=== PATIENT | female | born 1945 | race Caucasian/White ===

== ENCOUNTER 2018-05-28 06:19 | Day surgery (SDC) | payer MEDICARE, BC ==
[2018-05-28] MEDS ORDERED: Lactated Ringers 1,000 ML IV SCH ×2 (07:07→08:30)
[2018-05-28] MEDS ORDERED: Midazolam 1 MG/ML 2 ML SDV ONE (07:14)
[2018-05-28] MEDS ORDERED: Propofol 200 MG/20 ML SDV ONE (07:14)
[2018-05-28] MEDS ORDERED: fentaNYL 100 MCG/2 ML SDV ONE (07:14)
--- NOTE | 2018-05-28 10:59 | OR ---
DATE OF PROCEDURE: 05/28/2018 PREOPERATIVE DIAGNOSES: 1. Change in bowel habits, manifested by alternating constipation and diarrhea. 2. Abnormal CT scan showing thickened sigmoid colon with diverticulosis. POSTOPERATIVE DIAGNOSES: 1. Change in bowel habits, manifested by alternating constipation and diarrhea. 2. Abnormal CT scan showing thickened sigmoid colon with diverticulosis. PROCEDURE: Colonoscopy to the cecum with random colon biopsies. ANESTHESIA: IV anesthesia with monitored anesthesia care. INDICATION: This 73-year-old white female is referred for a colonoscopy. Her last colonoscopic exam, she says, was 12 years ago. She complains of some abdominal pain. CAT scan shows a thickened sigmoid with no obvious acute diverticulitis, but multiple diverticula. I counseled her for the colonoscopy with possible biopsy including risks and alternatives, and she gave her informed consent to proceed. DESCRIPTION OF PROCEDURE: The patient was placed in the left lateral decubitus position. IV anesthesia was administered by the Anesthesia service. Time-out was held. A rectal exam was performed, which was unremarkable. The flexible video Olympus colonoscope was introduced through her anus, up her rectum and out her colon, all the way to the cecum. En route, we saw multiple left-sided diverticula. There was no bleeding or inflammation associated with them at the present time. Once the cecum was reached, the scope was slowly withdrawn, examining the mucosa throughout. No additional mucosal abnormalities were noted. We did obtain random colonic biopsies throughout the entire colon. In the rectum, the scope was retroflexed, with the distal rectum appearing unremarkable. The scope was straightened and removed. She tolerated the procedure well. Basilio David MD /[id number]
== END 2018-05-28 10:13 | disposition home or self-care (01) ==
LOC: JP.SDS 06:19
PROVIDERS: ATTEND Surgery
DX: R19.4 Change in bowel habit (principal); K52.9 Noninfective gastroenteritis and colitis, unspecified; K57.30 Diverticulosis of large intestine without perforation or abscess without bleeding; K63.89 Other specified diseases of intestine; E03.9 Hypothyroidism, unspecified; E78.00 Pure hypercholesterolemia, unspecified; Z88.1 Allergy status to other antibiotic agents; Z88.5 Allergy status to narcotic agent; Z88.6 Allergy status to analgesic agent
CPT/HCPCS: 45380; 88305; J2250; J2704; J3010; J7120

== ENCOUNTER 2020-05-04 12:45 | Emergency (ER) | payer MEDICARE, BC ==
[2020-05-04] MEDS ORDERED: Sodium Chloride 0.9% 1,000 ML IV ONE (13:26)
[2020-05-04] MEDS ORDERED: HYDROmorphone 0.5 MG/0.5 ML Syringe IVPUSH ONE (13:26)
[2020-05-04] MEDS ORDERED: Ondansetron 4 MG/2 ML SDV IVPUSH ONE (13:26)
[2020-05-04] MEDS ORDERED: Sodium Chloride 0.9% 10 ML Syringe FLUSH PRN (13:27)
--- NOTE | 2020-05-04 13:35 | EDM.PDOC ---
ED HPI GENERAL MEDICAL PROBLEM - General Chief Complaint: Abdominal Pain Stated Complaint: ABD PAIN Time Seen by Provider: 05/04/20 13:25 Source of Information: Reports: Patient History Limitations: Reports: No Limitations - History of Present Illness INITIAL COMMENTS - FREE TEXT/NARRATIVE: Izzy is a 75 year old female, hx of diverticulitis, presents to the ED today with c/o abdominal pain, nausea and diarrhea. Patient was seen by GI last Monday for lower abdominal pain, she was concerned she had diverticulitis again, patient reports that the GI doctor did not think this was the case and thought patient had irritable bowel syndrome. Patient reports that it as recommended she start taking Miralax once in the morning and at night which she did not do as she has not issues with constipation. Patient was given a RX for cipro/flagyl on instructed to start taking these last Monday if her symptoms persisted, patient did start these on Monday morning. Since then patient's pain has migrated and now is more severe in RUQ and mid epigastric region, grabbing in sensation, nothing makes better or worse including her anti-spasmodics at home. Patient endorses nausea and now since this morning has had several, 6-7 episodes of non blood diarrhea. Patient still has lower abdominal pain. Patient denies any fever/chills. Patient has had a cholecystectomy and appen dectomy in the past as well as total hysterectomy. Patient denies any hx of C- diff, she does report hx of viral hepatitis. Patient denies any recent travel or sick exposures. Onset: Gradual Duration: Day(s): (6) Right Upper Abdomen Pain Score (Numeric/FACES): 10 - Related Data Allergies Allergy/AdvReac Type Severity Reaction Status Date / Time codeine Allergy Severe Anaphylactic Verified 07/29/18 07:33 Shock cephalexin monohydrate Allergy Rash Verified 08/07/14 08:08 [From Keflex] meperidine HCl [From Demerol] Allergy Rash Verified 08/07/14 08:08 tetracycline [Tetracycline] Allergy Rash Verified 08/07/14 08:08 Home Meds: Home Meds Levothyroxine [Synthroid] 50 mcg PO DAILY 08/06/14 [History] Cholecalciferol (Vitamin D3) [Vitamin D3] 2,000 units PO DAILY 05/24/18 [History] Magnesium Citrate 125 mg PO BID 05/24/18 [History] estradioL [Estradiol] 1 mg PO DAILY 05/24/18 [History] Ciprofloxacin [Ciprofloxacin HCl] 500 mg PO BID 05/04/20 [History] metroNIDAZOLE [Flagyl] 500 mg PO BID 05/04/20 [History] Past Medical History HEENT History: Reports: Impaired Vision Other HEENT History: wears glasses Gastrointestinal History: Reports: Chronic Diarrhea, Diverticulosis Genitourinary History: Reports: None Endocrine/Metabolic History: Reports: Hypothyroidism Hematologic History: Reports: B12 Deficiency - Infectious Disease History Infectious Disease History: Reports: Chicken Pox - Past Surgical History HEENT Surgical History: Reports: Cataract Surgery, Tonsillectomy GI Surgical History: Reports: Appendectomy, Cholecystectomy, Colonoscopy Female Surgical History: Reports: Breast Biopsy, Hysterectomy, Salpingo- Oophorectomy, Other (See Below) Other Female Surgeries/Procedures: lumpectomy 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 Dermatological Surgical History: Reports: None Social & Family History - Family History Cardiac: Reports: Heart Failure GI: Reports: Other (See Below) Other GI Family History: colitis : Reports: Renal Disease/Insufficiency Musculoskeletal: Reports: Back pain, Chronic Neurological: Reports: Other (See Below) Other Neurological Family History: non-cancerous brain tumor Endocrine/Metabolic: Reports: Diabetes, Type I, Diabetes, type II Oncologic: Reports: Breast, Lung, Skin, Thyroid - Tobacco Use Smoking Status *Q: Never Smoker - Caffeine Use Caffeine Use: Reports: Coffee ED ROS GENERAL - Review of Systems Review Of Systems: Comprehensive ROS is negative, except as noted in HPI. ED EXAM, GI/ABD - Physical Exam Exam: See Below Exam Limited By: No Limitations General Appearance: Alert, WD/WN, No Apparent Distress Eyes: Bilateral: EOMI Ears: Normal External Exam Throat/Mouth: Normal Inspection Head: Atraumatic Neck: Normal Inspection, Supple Respiratory/Chest: No Respiratory Distress, Lungs Clear Cardiovascular: Regular Rate, Rhythm, No Murmur GI/Abdominal Exam: Normal Bowel Sounds, Distended, Tender (exquisit tenderness to RUQ, gaurding, to a lesser degree lower abdomen, LLQ > RLQ. no hernia) Rectal (Female) Exam: Deferred Back Exam: Normal Inspection Extremities: Normal Inspection Neurological: Alert, Oriented, CN II-XII Intact Psychiatric: Normal Affect, Anxious (appears uncomfortable) Lymphatic: No Adenopathy Course - Vital Signs Last Recorded V/S: Last Vital Signs Temp 35.9 C L 05/04/20 13:07 Pulse 75 05/04/20 14:25 Resp 13 05/04/20 13:07 BP 140/55 L 05/04/20 14:25 Pulse Ox 97 05/04/20 14:25 Izzy is a very pleasant 75 year old female who presents to the ED today with nausea, diarrhea, and progressive abdominal pain. Please refer to HPI and focused exam. Patient arrives here hemodynamically stable and afebrile. She has exquisite tenderness on exam to RUQ region. Patient may have had diverticulitis, I am concerned about abscess formation vs. bowel perforation. She has had a cholecystectomy, however, a common bile duct stone may be playing a role. PIV established, blood work, UA and stool cultures including C-diff ordered. Patient given IV fluids and pain/nausea medications. CT of abdomen/pelvis obtained. CBC returns with normal white count, CRP just barely elevated at 0.34 with slight Gap of 14.9. GFR is 54 with normal Creatinine. AST mildly elevated at 79, bilirubin, remaining LFT's and Lipase/Amylase WNL. CT scan shows some ? focal diverticulitis, may have been worse prior to taking of Flagyl/Cipro. Patient does have some intrahepatic biliary prominence on CT scan. Since this is where majority of her pain is I did obtain a RUQ US to rule out choledocholithiasis. RUQ US unremarkable for any acute findings. Pain is better here with IV fluids and Dilaudid. After further discussion with patient, she has not been taking her probiotic since she started the Cipro/Flagyl which combined with just being on an antibiotic is likely attributing to her diarrhea. She can resume her probiotic at home or I did recommend Culturelle. With regard to epigastric pain, patient does have a small hiatal hernia, I am going to start her on BID Prilosec and discharge her home with Zofran. She should complete her Cipro/Flagyl course given her CT findings here today. Stool sample if diarrhea continues, out patient order placed. Patient instructed to stay well hydrated. Follow up with PCP in 1-2 weeks for re-check. Reasons to return to the ED discussed, patient and her are agreeable to plan of care and patient discharged in stable condition. - Orders/Labs/Meds Orders: Active Orders 24 hr Category Date Time Status Peripheral IV Care [RC] . DIRECTED Care 05/04/20 13:27 Active CULTURE STOOL + SHIGATOX [] Stat Lab 05/04/20 13:29 Ordered Clostridium [CLOS DIFFICILE PCR W/REFLEX] [] Stat Lab 05/04/20 13:28 Ordered Iopamidol [Isovue-300 (61%)] Med 05/04/20 13:45 Active 100 ml IV . DIRECTED Sodium Chloride 0.9% [Saline Flush] Med 05/04/20 13:27 Active 10 ml FLUSH ASDIRECTED PRN Peripheral IV Insertion Adult [OM.PC] Routine Oth 05/04/20 13:27 Ordered Medication Orders Iopamidol (Isovue-300 (61%)) 100 ml IV . DIRECTED [facility] Last Admin: 05/04/20 13:49 Dose: 100 ml Documented by: BANDAR Sodium Chloride (Saline Flush) 10 ml FLUSH ASDIRECTED PRN PRN Reason: Keep Vein Open Last Admin: 05/04/20 13:38 Dose: 10 ml Documented by: TRENTON Labs: Laboratory Tests 05/04/20 05/04/20 05/04/20 Range/Units 13:30 13:30 13:30 WBC 7.8 (4.5-11.0) K/uL RBC 4.63 (3.30-5.50) M/uL Hgb 14.0 (12.0-15.0) g/dL Hct 43.1 (36.0-48.0) % MCV 93 (80-98) fL MCH 30 (27-31) pg MCHC 33 (32-36) % Plt Count 250 (150-400) K/uL Neut % (Auto) 72 H (36-66) % Lymph % (Auto) 19 L (24-44) % Sunflower % (Auto) 7 H (2-6) % Eos % (Auto) 2 (2-4) % Baso % (Auto) 0 (0-1) % Sodium 139 L (140-148) mmol/L Potassium 3.9 (3.6-5.2) mmol/L Chloride 103 (100-108) mmol/L Carbon Dioxide 25 (21-32) mmol/L Anion Gap 14.9 H (5.0-14.0) mmol/L BUN 8 (7-18) mg/dL Creatinine 1.0 (0.6-1.0) mg/dL Est Cr Clr Drug Dosing 40.83 mL/min Estimated GFR (MDRD) 54 L (>60) Glucose 94 (74-106) mg/dL Lactic Acid 0.8 (0.4-2.0) mmol/L Calcium 9.0 (8.5-10.1) mg/dL Total Bilirubin 0.6 (0.2-1.0) mg/dL AST 79 H (15-37) U/L ALT 34 (12-78) U/L Alkaline Phosphatase 72 (46-116) U/L C-Reactive Protein 0.34 H (0.0-0.3) mg/dL Total Protein 7.0 (6.4-8.2) g/dL Albumin 3.7 (3.4-5.0) g/dL Globulin 3.3 (2.3-3.5) g/dL Albumin/Globulin Ratio 1.1 L (1.2-2.2) Amylase 51 (25-115) U/L Lipase 116 (73-393) U/L Urine Color (YELLOW) Urine Appearance (CLEAR) Urine pH (5.0-8.0) Ur Specific [place] (1.008-1.030) Urine Protein (NEGATIVE) mg/dL Urine Glucose (UA) (NEGATIVE) mg/dL Urine Ketones (NEGATIVE) mg/dL Urine Occult Blood (NEGATIVE) Urine Nitrite (NEGATIVE) Urine Bilirubin (NEGATIVE) Urine Urobilinogen (0.2-1.0) EU/dL Ur Leukocyte Esterase (NEGATIVE) Urine RBC (0-5) Urine WBC (0-5) Ur Epithelial Cells Amorphous Sediment Urine Bacteria Urine Mucus 05/04/20 Range/Units 14:08 WBC (4.5-11.0) K/uL RBC (3.30-5.50) M/uL Hgb (12.0-15.0) g/dL Hct (36.0-48.0) % MCV (80-98) fL MCH (27-31) pg MCHC (32-36) % Plt Count (150-400) K/uL Neut % (Auto) (36-66) % Lymph % (Auto) (24-44) % Sunflower % (Auto) (2-6) % Eos % (Auto) (2-4) % Baso % (Auto) (0-1) % Sodium (140-148) mmol/L Potassium (3.6-5.2) mmol/L Chloride (100-108) mmol/L Carbon Dioxide (21-32) mmol/L Anion Gap (5.0-14.0) mmol/L BUN (7-18) mg/dL Creatinine (0.6-1.0) mg/dL Est Cr Clr Drug Dosing mL/min Estimated GFR (MDRD) (>60) Glucose (74-106) mg/dL Lactic Acid (0.4-2.0) mmol/L Calcium (8.5-10.1) mg/dL Total Bilirubin (0.2-1.0) mg/dL AST (15-37) U/L ALT (12-78) U/L Alkaline Phosphatase (46-116) U/L C-Reactive Protein (0.0-0.3) mg/dL Total Protein (6.4-8.2) g/dL Albumin (3.4-5.0) g/dL Globulin (2.3-3.5) g/dL Albumin/Globulin Ratio (1.2-2.2) Amylase (25-115) U/L Lipase (73-393) U/L Urine Color Yellow (YELLOW) Urine Appearance Clear (CLEAR) Urine pH 5.5 (5.0-8.0) Ur Specific [place] <= 1.005 L (1.008-1.030) Urine Protein Negative (NEGATIVE) mg/dL Urine Glucose (UA) Negative (NEGATIVE) mg/dL Urine Ketones Negative (NEGATIVE) mg/dL Urine Occult Blood Negative (NEGATIVE) Urine Nitrite Negative (NEGATIVE) Urine Bilirubin Negative (NEGATIVE) Urine Urobilinogen 0.2 (0.2-1.0) EU/dL Ur Leukocyte Esterase Negative (NEGATIVE) Urine RBC Not seen (0-5) Urine WBC 0-5 (0-5) Ur Epithelial Cells Not seen Amorphous Sediment Not seen Urine Bacteria Few Urine Mucus Not seen Meds: Medications Generic Name Dose Route Start Last Admin Trade Name Freq PRN Reason Stop Dose Admin Iopamidol 100 ml 05/04/20 13:45 05/04/20 13:49 Isovue-300 (61%) IV 100 ml . DIRECTED ERIK Administration Sodium Chloride 10 ml 05/04/20 13:27 05/04/20 13:38 Saline Flush FLUSH 10 ml ASDIRECTED PRN Administration Keep Vein Open Discontinued Medications Generic Name Dose Route Start Last Admin Trade Name Lucq PRN Reason Stop Dose Admin Hydromorphone HCl 0.5 mg 05/04/20 13:26 05/04/20 13:38 Dilaudid IVPUSH 05/04/20 13:27 0.5 mg ONETIME ONE Administration Sodium Chloride 1,000 mls @ 999 mls/hr 05/04/20 13:26 05/04/20 13:37 Normal Saline IV 05/04/20 14:26 999 mls/hr .BOLUS ONE Administration Ondansetron HCl 4 mg 05/04/20 13:05/04/20 13:38 Zofran IVPUSH 05/04/20 13:27 4 mg ONETIME ONE Administration Sodium Chloride 10 ml 05/04/20 13:38 05/04/20 13:49 Saline Flush FLUSH 05/04/20 13:39 10 ml ONETIME ONE Administration Departure - Departure Time of Disposition: 16:00 Disposition: Home, Self-Care 01 Condition: Good Clinical Impression: Diverticulitis Abdominal pain Qualifiers: Abdominal location: right upper quadrant Qualified Code(s): R10.11 - Right upper quadrant pain Diarrhea Qualifiers: Diarrhea type: unspecified type Qualified Code(s): R19.7 - Diarrhea, unspecified - Discharge Information Instructions: Diverticulitis, Abdominal Pain, Adult, [id number], Diarrhea, Adult Referrals: Vahid Shaffer MD [Primary Care Provider] - Forms: ED Department Discharge Additional Instructions: Complete the Cipro/Flagyl course, take with food. Stay well hydrated. Prilosec twice daily for 2 weeks, start this evening, take one hour prior to antibiotic dose. Resume your daily probiotic. Bring in stool sample if you continue to have multiple daily loose stools. Return here with any worsening symptoms or new concerns, follow up with your primary care provider in 1-2 weeks for recheck. It was nice meeting you, I hope you feel better soon! Sepsis Event Note (ED) - Evaluation Sepsis Screening Result: No Definite Risk - Focused Exam Vital Signs: Vital Signs Temp Pulse Resp BP Pulse Ox 05/04/20 14:25 75 140/55 L 97 05/04/20 13:07 35.9 C L 86 13 155/70 H 97 05/04/20 13:05 35.9 C L 86 13 155/70 H 97 - My Orders Last 24 Hours: My Active Orders 05/04/20 13:27 Peripheral IV Care [RC] . DIRECTED Sodium Chloride 0.9% [Saline Flush] 10 ml FLUSH ASDIRECTED PRN Peripheral IV Insertion Adult [OM.PC] Routine 05/04/20 13:28 Clostridium [CLOS DIFFICILE PCR W/REFLEX] [RM] Stat 05/04/20 13:29 CULTURE STOOL + SHIGATOX [RM] Stat 05/04/20 13:45 Iopamidol [Isovue-300 (61%)] 100 ml IV . DIRECTED - Assessment/Plan Last 24 Hours: My Active Orders 05/04/20 13:27 Peripheral IV Care [RC] . DIRECTED Sodium Chloride 0.9% [Saline Flush] 10 ml FLUSH ASDIRECTED PRN Peripheral IV Insertion Adult [OM.PC] Routine 05/04/20 13:28 Clostridium [CLOS DIFFICILE PCR W/REFLEX] [RM] Stat 05/04/20 13:29 CULTURE STOOL + SHIGATOX [RM] Stat 05/04/20 13:45 Iopamidol [Isovue-300 (61%)] 100 ml IV . DIRECTED
[2020-05-04] MEDS ORDERED: Sodium Chloride 0.9% 10 ML Syringe FLUSH ONE (13:38)
[2020-05-04] MEDS ORDERED: Iopamidol 612 MG/ML 100 ML Bottle IV SCH (13:45)
--- NOTE | 2020-05-04 14:08 | CT ---
Abdomen Pelvis w Cont CLINICAL HISTORY: Right abdominal pain COMPARISON: 2019. TECHNIQUE: Axial tomographic images are obtained from the dome of the diaphragm to the pubic symphysis without IV contrast enhancement. No oral contrast was used. Auto dosage reduction and iterative reconstruction techniques employed. FINDINGS: The lung bases are clear. The liver shows no mass. There is some intrahepatic biliary prominence. This may be related to previous cholecystectomy. This is likely related to previous cholecystectomy but appears slightly more prominent than on prior studies. The spleen has a normal size and shape. There is a small sliding-type hiatal hernia The pancreas shows no mass or inflammatory change. The adrenal glands appear normal bilaterally. The kidneys show no mass, stones or hydronephrosis. Ureters have normal course and caliber. The bladder has a normal contour. The aorta has a normal contour. There is no suspicious retroperitoneal adenopathy. There is moderate diffuse diverticulosis is some mild the thickening of the distal descending colon with some mild ill-definition of the surrounding fat. This is just above the area of a previously described diverticulitis. The appendix is not visualized. IMPRESSION: Moderate diverticulosis with a focus of thickening and some pericolic inflammation. This is just above the site of previous diverticulitis. This may represent some scarring and muscularis hypertrophy. Some focal diverticulitis is not excluded. Previous cholecystectomy. There is some intrahepatic biliary dilatation which may be related but this appears slightly more prominent than on prior study. This may be normal progression of postoperative change. This should be correlated with laboratory values
--- NOTE | 2020-05-04 15:19 | US ---
Abdomen Ltd CLINICAL HISTORY: Right upper quadrant pain, previous cholecystectomy COMPARISON: Current CT. TECHNIQUE: Real-time images were obtained through the right upper quadrant. FINDINGS: The liver is free of mass.There is some intrahepatic biliary dilatation. Liver parenchyma has a normal echotexture. The gallbladder has been removed. The common bile duct measures 12 mm. The pancreas is free of mass. The right kidney has a normal appearance. The IVC is normal. No free fluid seen IMPRESSION: Mildly trabeculated biliary dilatation as seen on current CT Previous cholecystectomy Common bile duct measures 12 mm No free fluid
== END 2020-05-04 16:00 | disposition home or self-care (01) ==
LOC: JP.ED 12:45
DX: K57.32 Diverticulitis of large intestine without perforation or abscess without bleeding (principal); E03.9 Hypothyroidism, unspecified; Z90.710 Acquired absence of both cervix and uterus; Z90.49 Acquired absence of other specified parts of digestive tract; Z98.890 Other specified postprocedural states; Z88.5 Allergy status to narcotic agent; Z88.8 Allergy status to other drugs, medicaments and biological substances; Z88.1 Allergy status to other antibiotic agents; Z79.899 Other long term (current) drug therapy
CPT/HCPCS: 36415; 74177; 76705; 80053; 81001; 82150; 83605; 83690; 85025; 86140; 96361; 96374; 96375; 99284; J1170; J2405; J7030; Q9967

== ENCOUNTER 2021-03-05 08:50 | Emergency (ER) | payer OTHER, MEDICARE, BC | END 2021-03-05 09:04 | disposition left against medical advice (07) | LOC: JP.ED 08:50 | DX: Z53.21 Procedure and treatment not carried out due to patient leaving prior to being seen by health care provider (principal) ==

== ENCOUNTER 2021-03-06 09:44 | Emergency (ER) | payer OTHER, MEDICARE, BC ==
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
[2021-03-06] MEDS ORDERED: Iopamidol 612 MG/ML 100 ML Bottle IV SCH (10:45)
[2021-03-06] MEDS ORDERED: Sodium Chloride 0.9% 1,000 ML IV SCH (10:45)
[2021-03-06] MEDS: Sodium Chloride 0.9% 10 ML Syringe FLUSH ONE ×2 (10:46→11:03)
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
== END 2021-03-06 12:06 | disposition home or self-care (01) ==
LOC: JP.ED 09:44
DX: S30.1XXA Contusion of abdominal wall, initial encounter (principal); E03.9 Hypothyroidism, unspecified; Z79.899 Other long term (current) drug therapy; Z88.5 Allergy status to narcotic agent; Z88.1 Allergy status to other antibiotic agents; V89.2XXA Person injured in unspecified motor-vehicle accident, traffic, initial encounter
CPT/HCPCS: 74177; 99284; J7030; Q9967

== ENCOUNTER 2022-08-19 08:09 | Day surgery (SDC) | payer MEDICARE, BC ==
[2022-08-19] MEDS ORDERED: Sodium Chloride 0.9% 1,000 ML IV SCH (09:00)
[2022-08-19] MEDS ORDERED: fentaNYL 50 MCG/ML SDV ONE (09:13)
[2022-08-19] MEDS ORDERED: Propofol 200 MG/20 ML SDV ONE (09:13)
== END 2022-08-19 11:25 | disposition home or self-care (01) ==
LOC: JP.SDS 08:09
PROVIDERS: ATTEND Surgery
DX: K29.70 Gastritis, unspecified, without bleeding (principal); K21.9 Gastro-esophageal reflux disease without esophagitis; F41.9 Anxiety disorder, unspecified; E78.00 Pure hypercholesterolemia, unspecified; Z79.899 Other long term (current) drug therapy; Z88.5 Allergy status to narcotic agent; Z88.1 Allergy status to other antibiotic agents
CPT/HCPCS: 43239; J2704; J3010; J7030

== ENCOUNTER 2023-04-10 10:13 | Emergency (ER) | payer MEDICARE, BC ==
[2023-04-10] MEDS ORDERED: Sodium Chloride 0.9% 1,000 ML IV ONE (11:14)
[2023-04-10] MEDS ORDERED: Sodium Chloride 0.9% 10 ML Syringe FLUSH PRN ×2 (11:14→12:29)
[2023-04-10] MEDS ORDERED: Ondansetron 4 MG/2 ML SDV IVPUSH ONE (11:15)
[2023-04-10 11:23] LABS: HEMATOCRIT 42.5 % (34.3-46.0); MEAN CORPUSCULAR HEMOGLOBIN 29.7 pg (31.6-35.5); MEAN CORPUSCULAR HGB CONC 32.9 g/dL (31.6-35.5); RED BLOOD CELL COUNT 4.72 M/uL (3.77-5.24); WHITE BLOOD CELL COUNT,WBC 8.7 K/uL (3.2-11.0)
[2023-04-10 11:46] LABS: A/G RATIO 0.8 (1.2-2.2); ALANINE AMINOTRANSFERASE,ALT 21 U/L (12-78); ALBUMIN 3.2 g/dL (3.4-5.0); ALKALINE PHOSPHATASE 93 U/L (46-116); ASPARTATE AMNIOTRANSFERASE,AST 16 U/L (15-37); BILIRUBIN TOTAL 0.6 mg/dL (0.2-1.0); BLOOD UREA NITROGEN,BUN 10 mg/dL (7-18); C-REACTIVE PROTEIN 1.91 mg/dL (0.0-0.3); CALCIUM 8.8 mg/dL (8.5-10.1); CARBON DIOXIDE,CO2 27 mmol/L (21-32); CHLORIDE,CL 101 mmol/L (100-108); CREATININE 1.2 mg/dL (0.6-1.0); EST CRCL DRUG DOSING (CG) 33.55 mL/min; ESTIMATED GFR 47 mL/min (>60); GLUCOSE RANDOM 106 mg/dL (74-106); SODIUM,NA 134 mmol/L (140-148)
[2023-04-10] MEDS ORDERED: Iopamidol 612 MG/ML 100 ML Bottle IV PRN (12:29)
[2023-04-10] MEDS ORDERED: Sodium Chloride 0.9% 50 ML IV SCH (12:30)
[2023-04-10 12:55] LABS: APPEARANCE,URINE CLEAR (CLEAR); BILIRUBIN,URINE NEGATIVE (NEGATIVE); COLOR,URINE YELLOW (YELLOW); GLUCOSE,URINE NEGATIVE (NEGATIVE); KETONES,URINE NEGATIVE (NEGATIVE); LEUKOCYTE ESTERASE,URINE NEGATIVE (NEGATIVE); NITRITE,URINE NEGATIVE (NEGATIVE); OCCULT BLOOD,URINE NEGATIVE (NEGATIVE); PROTEIN,URINE NEGATIVE (NEGATIVE); UROBILINOGEN,URINE 0.2 EU/dL (0.2-1.0)
[2023-04-10 13:00] LABS: AMORPHOUS SEDIMENT,URINE NOT SEEN; BACTERIA,URINE NOT SEEN; EPITHELIAL CELLS,URINE NOT SEEN; MUCUS,URINE FEW; RBC,URINE NOT SEEN (0-5); WBC,URINE NOT SEEN (0-5)
== END 2023-04-10 14:54 | disposition home or self-care (01) ==
LOC: JP.ED 10:13
DX: K51.20 Ulcerative (chronic) proctitis without complications (principal); K57.90 Diverticulosis of intestine, part unspecified, without perforation or abscess without bleeding; E03.9 Hypothyroidism, unspecified; Z88.5 Allergy status to narcotic agent; Z88.1 Allergy status to other antibiotic agents; Z79.899 Other long term (current) drug therapy; Z90.49 Acquired absence of other specified parts of digestive tract
CPT/HCPCS: 36415; 74177; 80053; 81001; 83605; 85027; 86140; 96361; 96374; 99284; J2405; J3490; J7040; Q9967

== ENCOUNTER → 2024-07-12 | Day surgery (SDC) | payer MEDICARE, BC ==
[~2024-07-12] MED LIST: Propofol 200 MG/20 ML SDV ONE; fentaNYL 50 MCG/ML SDV ONE
[2024-07-12] MEDS: Lactated Ringers 1,000 ML IV SCH (07:44)
== END ==
LOC: JP.SDS 07:07
PROVIDERS: ATTEND Family Medicine
DX: K29.50 Unspecified chronic gastritis without bleeding (principal); K21.9 Gastro-esophageal reflux disease without esophagitis
CPT/HCPCS: 00731; 43239; 88305; J2704; J3010; J7120